=== PATIENT | female | born 1975 | race American Indian/Alaskan Native ===

== ENCOUNTER 2021-04-30 12:08 | Outpatient (CLI) | payer OTHER | END 2021-04-30 12:09 | disposition home or self-care (01) | LOC: MAMMO 12:08 | PROVIDERS: ATTEND Family Medicine | DX: Z12.31 Encounter for screening mammogram for malignant neoplasm of breast (principal) | CPT/HCPCS: 77067 ==

== ENCOUNTER 2021-05-27 09:04 | Outpatient (CLI) | payer OTHER ==
--- NOTE | 2021-05-27 10:04 | Ultrasound Report ---
ULTRASOUND BREAST LEFT LIMITED, 05/27/2021 CLINICAL INFORMATION / INDICATION: Increasing nodularity in the left upper outer quadrant and superio r breast on screening mammography. TECHNIQUE: Targeted ultrasound evaluation was performed of the area of interest. COMPARISON: Bilateral mammography 04/30/21. FINDINGS: There is a 3.4 cm ovoid simple cyst at the 12:00 position 6 cm from the nipple. This corresponds to t he site of the dominant nodule seen mammographically. Additionally, there are multiple other complica joseline cysts scattered throughout the left breast from 12:00 through 2:00 1 to 5 cm from the nipple. The largest lesion measures 2.3 cm at the 1:00 position 3 cm from the nipple and has the appearance of a complicated cyst. There is an adjacent 1.1 cm complex cyst. There are several additional complex cys ts at the 2:00 position near the edge of the areola, the largest of which measures 8.5 mm. None of the lesions demonstrates posterior shadowing or internal vascularity on Doppler exam. IMPRESSION: The dominant lesion in the left superior breast corresponds to a 3.4 cm simple cyst. The other nodules correspond to complicated and mildly complex appearing cysts. A follow-up left breast u ltrasound in 6 months is recommended to document stability. Follow up recommendation: Ultrasound BI-RADS Category 3: Probably Benign. Followup in 6 months. A normal or "negative" report should not preclude biopsy or follow-up of a clinically suspicious find ing. Signer Name: Bunny Schroeder MD Signed: 05/27/2021 10:00 AM Workstation Name: [email or web address]
== END 2021-05-27 09:05 | disposition home or self-care (01) ==
LOC: US 09:04
PROVIDERS: ATTEND Family Medicine
DX: N60.02 Solitary cyst of left breast (principal)